=== PATIENT | female | born 1940 | race Caucasian/White ===

== ENCOUNTER 2022-11-29 16:43 | Emergency (ER) | payer MEDICARE, SELFPAY ==
[2022-11-29 17:11] VITALS: BP 147/78; PULSE 64; RESP 16; TEMP 36.4; O2SAT 98
--- NOTE | 2022-11-29 17:25 | ED.FEMALEGU ---
HPI - Female Genitourinary General Chief complaint: Urogenital-Female Stated complaint: UTI SYMPTOMS Time Seen by Provider: 11/29/22 17:19 Source: patient and RN notes reviewed Mode of arrival: ambulatory Limitations: no limitations History of Present Illness HPI Narrative: Patient presents today complaining of frequency and dysuria since yesterday. Denies any additional symptoms to include abdominal pain, fever, hematuria. She took a dose of azo approximately 4 hours prior to arrival with some relief. Related Data Home Medications Medication Instructions Recorded Confirmed atorvastatin 10 mg tablet mg 11/29/22 bimatoprost 0.01 % eye drops drp 11/29/22 (Lumigan) linagliptin 5 mg tablet (Tradjenta) mg 11/29/22 losartan 50 mg tablet mg 11/29/22 metoprolol succinate 50 mg mg PO 11/29/22 tablet,extended release 24 hr nifedipine 60 mg tablet,extended mg PO 11/29/22 release semaglutide 1 mg/dose (4 mg/3 mL) mg subcut 11/29/22 subcutaneous pen injector (Ozempic) Allergies Allergy/AdvReac Type Severity Reaction Status Date / Time sulfamethoxazole Allergy Mild TONGUE Verified 11/29/22 17:04 BROWNISH trimethoprim Allergy Mild TONGUE Verified 11/29/22 17:04 BR[place]ISH NSAIDS (Non-Steroidal AdvReac Gastrointestinal Verified 11/29/22 17:04 Anti-Inflamma Upset AMOXICILLIN TRIHYDRATE Allergy Mild SWELLING/RA Uncoded 11/29/22 17:04 SH POTASSIUM CLAVULANATE Allergy Mild SWELLING/RA Uncoded 11/29/22 17:04 SH Review of Systems Review of Systems: CONSTITUTIONAL: Denies body aches, fever, chills, or sweats. EYES: Denies visual changes, redness, or discharge. ENT: Denies rhinorrhea, congestion, sore throat, or otalgia. CARDIOVASCULAR: Denies chest pain, palpitations, or edema. RESPIRATORY: Denies cough or dyspnea. GASTROINTESTINAL: Denies abdominal pain, nausea, vomiting, or diarrhea. GENITOURINARY: + dysuria, frequency. SKIN: Denies rash, itching, or wounds. MUSCULOSKELETAL: Denies back pain, joint pain, or myalgia. NEUROLOGIC: Denies headache, numbness, tingling, or weakness. PSYCH: Denies depression or anxiety. PMFSH Comments At time of signature, I have reviewed and agree with nursing past medical, surgical, social and family history unless otherwise noted. Please see nursing chart for further information. There is no relevant family history pertinent to the presenting complaint Exam Narrative: GENERAL: Well-appearing, well-nourished, and in no acute distress. HEAD: Normocephalic, atraumatic. EYES: EOMI. No redness or drainage. Conjunctivae normal. ENT: Mucous membranes pink and moist. NECK: Normal AROM. CHEST: No respiratory distress. Clear to auscultation. HEART: Regular rate and rhythm. No murmur appreciated. Normal peripheral pulses. ABDOMEN: Soft, nontender, nondistended, normal active bowel sounds. EXTREMITIES: Normal range of motion. No edema. SKIN: Warm, dry, no rash. Capillary refill normal. Normal skin turgor. NEURO: No focal deficits. Alert and oriented x3. Gait steady. PSYCH: Normal affect. No signs of depression or anxiety. Course Course Level of Care: Express Care Visit Vital Signs Vital signs: Vital Signs Temperature 97.6 F 11/29/22 17:11 Pulse Rate 64 11/29/22 17:11 Respiratory Rate 16 11/29/22 17:11 Blood Pressure 147/78 H 11/29/22 17:11 Pulse Oximetry 98 11/29/22 17:11 Temperature 97.6 F 11/29/22 17:11 Pulse Rate 64 11/29/22 17:11 Respiratory Rate 16 11/29/22 17:11 Blood Pressure 147/78 H 11/29/22 17:11 Pulse Oximetry 98 11/29/22 17:11 Reviewed. Pt has been instructed to follow up with her PCP regarding her elevated blood pressure today. MDM - Female Genitourinary MDM Narrative Medical decision making narrative: UA is consistent with UTI, however, there is recent azo use. Will treat patient with Cipro. Anticipatory guidance given. Differential Diagnosis Differential diagnosis: Likely urinar
== END 2022-11-29 17:35 | disposition home or self-care (01) ==
PROVIDERS: Emergency Provider Nurse Practitioner
DX: N30.01 Acute cystitis with hematuria (principal); E78.00 Pure hypercholesterolemia, unspecified; I10 Essential (primary) hypertension; Z96.651 Presence of right artificial knee joint; Z96.642 Presence of left artificial hip joint; E11.9 Type 2 diabetes mellitus without complications; H40.9 Unspecified glaucoma
CPT/HCPCS: 81003; 87086; 87088; 99213; G0463